=== PATIENT | female | born 1945 | race African-American/Black ===

== ENCOUNTER 2023-08-03 18:14 | Emergency (ER) | payer MEDICAID, MEDICARE ==
[2023-08-03 20:32] LABS: Hematocrit 32.9 % (34.9-44.5); Hemoglobin 10.7 g/dL (12.0-15.5); Mean Corpuscular HGB CONC 32.5 g/dL (32.0-36.0); Mean Corpuscular Hemoglobin 26.6 pg (27.0-33.0); Mean Corpuscular Volume 81.6 fl (81.6-98.3); Mean Platelet Volume 9.5 fl (7.4-10.4); Platelet Count 285 10x3/uL (150-450); RBC Distribution Width 14.3 % (11.5-14.5); Red Blood Cell (RBC) Count 4.03 10x6/uL (3.90-5.03); White Blood Cell (WBC) Count 6.7 10x3/uL (3.5-10.5)
[2023-08-03 20:42] LABS: ALT (SGPT) 12 U/L (8-55); AST (SGOT) 24 U/L (5-34); Albumin 3.9 g/dL (3.4-4.8); Alkaline Phosphatase 91 U/L (40-110); Anion Gap 15 mmol/L (10-20); BUN (Urea Nitrogen) 10 mg/dL (9.8-20.1); Bilirubin, Total 0.5 mg/dL (0.2-1.2); Calc. Creatinine Clearance 0 mL/min (70-130); Calcium 9.6 mg/dL (7.8-10.44); Carbon Dioxide 26 mmol/L (23-31); Chloride 102 mmol/L (98-107); Estimated GFR 77; Globulin 4.5 g/dL (2.4-3.5); Glucose 91 mg/dL (83-110); Potassium 3.2 mmol/L (3.5-5.1); Protein, Total 8.4 g/dL (5.8-8.1); Sodium 140 mmol/L (136-145)
[2023-08-03 20:48] LABS: Troponin I Less than 0.010 ng/mL (< 0.028)
[2023-08-03 21:00] LABS: Lymphocytes 8 % (21-51); Monocytes 6 % (0-10)
[2023-08-03 21:01] LABS: Platelet Adequacy Comment Appears Adequate; RBC Morph Comment Within Normal Limits
[2023-08-03] MEDS ORDERED: Potassium Chloride 20 MEQ TAB ONE (21:12)
[2023-08-03 21:44] LABS: Band 4 % (5-11); Eosinophils 1 % (0-10); Neutrophil 81 % (42-75)
== END 2023-08-03 21:28 | disposition home or self-care (01) ==
LOC: CSHERS 18:14
DX: R55 Syncope and collapse (principal); E87.6 Hypokalemia; I10 Essential (primary) hypertension
CPT/HCPCS: 36415; 80053; 84484; 85025; 93005